=== PATIENT | female | born 1960 | race Caucasian/White ===

== ENCOUNTER → 2020-02-15 | Outpatient (CLI) | payer OTHER | END | disposition home or self-care (01) | LOC: PETCFH 07:45 | PROVIDERS: ATTEND Surgery | DX: R91.1 Solitary pulmonary nodule (principal) | CPT/HCPCS: 78815; A9552 ==

== ENCOUNTER → 2020-02-21 | Outpatient (CLI) | payer OTHER ==
[~2020-02-21] MED LIST: BISM262T9 PO; COLE1TAB2 PO; DIAZ2TAB PO; DILT180C59 PO; FAMO-79 PO; HYDROCHLOROTH12.5 MG PO; LISI-167 PO; MULT-717 PO; PANT20TA4 PO; WHEA1POW5 PO
[2020-02-21 11:04] LABS: BASOPHILS % (AUTO) 0 % (0-1); EOSINOPHILS % (AUTO) 2 % (1-7); LYMPHOCYTES % (AUTO) 25 % (22-44); MD NO; MEAN CORPUSCULAR HEMOGLOBIN 26.7 pg (27.0-34.8); MEAN CORPUSCULAR HGB CONC 32.7 g/dL (32.4-35.8); MEAN PLATELET VOLUME 8.3 fL (7.4-10.4); MONOCYTES % (AUTO) 9 % (2-9); NEUTROPHILS % (AUTO) 64 % (42-75); PLATELET COUNT 297 x10^3/uL (130-400); RED BLOOD COUNT 4.97 x10^6/uL (3.82-5.3); RED CELL DISTRIBUTION WIDTH 15.1 % (9.6-15.2)
[2020-02-21 11:10] LABS: ALBUMIN 4.3 g/dL (3.4-5.0); ANION GAP 10 mmol/L (5-15); CALCIUM 9.2 mg/dL (8.5-10.1); CHLORIDE 106 mmol/L (98-107)
[2020-02-21 11:16] LABS: ALANINE AMINOTRANSFERASE 50 U/L (12-78); ALKALINE PHOSPHATASE 133 U/L (45-117); BILIRUBIN,TOTAL 0.4 mg/dL (0.2-1.0); CREATININE 1.15 mg/dL (0.55-1.02); TOTAL PROTEIN 8.4 g/dL (6.4-8.2)
== END | disposition home or self-care (01) ==
LOC: STAR 09:37
PROVIDERS: ATTEND Surgery
DX: Z20.828 Contact with and (suspected) exposure to other viral communicable diseases (principal)
CPT/HCPCS: 36415; 80053; 85025; 87635; 93005

== ENCOUNTER 2020-02-26 06:09 | Inpatient (IN) | payer OTHER ==
[~2020-02-26] VITALS: Ht 165.1 cm; Wt 81.0 kg
[2020-02-26] MEDS ORDERED: CHLORHEXIDINE 15 ML UDC MM STA (06:29)
[2020-02-26] MEDS ORDERED: LACTATED RINGERS 1,000 ML IV SCH (06:30)
[2020-02-26] MEDS ORDERED: FENTANYL PF 250 MCG/5ML ONE (06:36)
[2020-02-26] MEDS ORDERED: PROPOFOL 50 ML ONE (06:36)
[2020-02-26] MEDS ORDERED: MIDAZOLAM 1 MG/ML, 2ML ONE (06:36)
[2020-02-26] MEDS ORDERED: ACETAMINOPHEN 325 MG TABLET PO PRN (07:00)
[2020-02-26] MEDS ORDERED: DIAZEPAM 5 MG/ML, 2ML IVPush PRN (07:00)
[2020-02-26] MEDS ORDERED: MEPERIDINE/PF 25MG/0.5ML IVPush PRN (07:00)
[2020-02-26] MEDS ORDERED: DIPHENHYDRAMINE 50 MG/ML, 1ML IVPush PRN (07:00)
[2020-02-26] MEDS ORDERED: PROMETHAZINE 25 MG/ML, 1ML IVPush PRN (07:00)
[2020-02-26] MEDS ORDERED: hydrALAzine 20 MG/ML, 1ML IV PRN ×2 (07:00→09:30)
[2020-02-26] MEDS ORDERED: LABETALOL 5MG/ML, 20ML IV PRN (07:00)
[2020-02-26] MEDS ORDERED: EPINEPHRINE 1 MG/ML, 1ML ONE (07:01)
[2020-02-26] MEDS ORDERED: BUPIVACAINE/PF 0.5% ONE (07:01)
[2020-02-26] MEDS ORDERED: ONDANSETRON 2MG/ML, 2ML ONE (07:38)
[2020-02-26] MEDS ORDERED: SUGAMMADEX 200 MG/2 ML IVPush ONE (07:38)
[2020-02-26] MEDS ORDERED: LIDOCAINE 4%, 4 ML SYR/CANN TP ONE ×2 (07:38)
[2020-02-26] MEDS ORDERED: PROPOFOL 10 MG/ML, 20ML ONE (07:38)
[2020-02-26] MEDS ORDERED: LIDOCAINE-MPF 2% ,5ML ONE (07:38)
[2020-02-26] MEDS ORDERED: CEFAZOLIN 1,000 MG ONE (07:38)
[2020-02-26] MEDS ORDERED: ROCURONIUM 10MG/ML,5ML ONE (07:38)
[2020-02-26] MEDS ORDERED: DEXAMETHASONE 4 MG/ML, 1ML ONE (07:38)
[2020-02-26] MEDS ORDERED: BUPIVACAINE/PF-EPI 0.5% 1:200K INFIL ONE (08:04)
[2020-02-26] MEDS ORDERED: FENTANYL PF 100 MCG/2ML ONE ×2 (09:01→09:52)
[2020-02-26] MEDS: FENTANYL PF 100 MCG/2ML IV PRN ×4 (09:03→10:13)
[2020-02-26] MEDS ORDERED: HYDROmorphone 1 MG/ML, 1ML INJ ONE (09:14)
[2020-02-26] MEDS ORDERED: DIAZEPAM 5 MG/ML, 2ML ONE (09:14)
[2020-02-26] MEDS ORDERED: KETOROLAC 30 MG/1 ML ONE (09:19)
[2020-02-26] MEDS: KETOROLAC 30 MG/1 ML IV PRN ×3 (09:24→23:35)
[2020-02-26] MEDS ORDERED: FAMOTIDINE 20 MG TABLET PO PRN (09:30)
[2020-02-26] MEDS ORDERED: DIAZEPAM 2 MG TABLET PO PRN (09:30)
[2020-02-26] MEDS ORDERED: DIPHENHYDRAMINE 50 MG/ML, 1ML IV PRN (09:30)
[2020-02-26] MEDS ORDERED: OXYcodone IR 5MG TABLET PO PRN (09:30)
[2020-02-26] MEDS: ACETAMINOPHEN 650 MG/20.3 ML UDC PO SCH ×2 (09:30→15:30)
[2020-02-26] MEDS ORDERED: MORPHINE SULFATE 4 MG/ML, 1ML IVPush PRN (09:30)
[2020-02-26] MEDS ORDERED: ONDANSETRON 2MG/ML, 2ML IVPush PRN (09:30)
[2020-02-26] MEDS ORDERED: ENALAPRILAT 1.25 MG/ML, 2ML IV PRN (09:30)
[2020-02-26] MEDS: HYDROmorphone 1 MG/ML, 1ML INJ IVPush PRN ×2 (09:37→09:48)
[2020-02-26] MEDS ORDERED: OXYcodone 5 MG/5 ML ORAL.SOL UDC ONE ×2 (09:49→15:06)
[2020-02-26] MEDS: OXYcodone 5 MG/5 ML ORAL.SOL UDC PO PRN ×2 (09:51→14:22)
[2020-02-26] MEDS ORDERED: MEPERIDINE/PF 25MG/ML,1ML ONE (11:29)
[2020-02-26] MEDS ORDERED: PROMETHAZINE 25 MG/ML, 1ML ONE (11:51)
[2020-02-26 12:53] LABS: BASOPHILS % (AUTO) 0 % (0-1); EOSINOPHILS % (AUTO) 0 % (1-7); LYMPHOCYTES % (AUTO) 4 % (22-44); MEAN CORPUSCULAR HEMOGLOBIN 26.3 pg (27.0-34.8); MEAN CORPUSCULAR HGB CONC 31.9 g/dL (32.4-35.8); MONOCYTES % (AUTO) 3 % (2-9); NEUTROPHILS % (AUTO) 93 % (42-75); PLATELET COUNT 269 x10^3/uL (130-400); RED BLOOD COUNT 4.65 x10^6/uL (3.82-5.3)
[2020-02-26 13:02] LABS: ALBUMIN 3.9 g/dL (3.4-5.0); ANION GAP 4 mmol/L (5-15); CALCIUM 8.8 mg/dL (8.5-10.1); CHLORIDE 105 mmol/L (98-107); CREATININE 1.32 mg/dL (0.55-1.02)
[2020-02-26 13:14] LABS: MD SCAN
[2020-02-26] MEDS: ONDANSETRON 2MG/ML, 2ML IVPush PRN (15:40)
[2020-02-26] MEDS: POTASSIUM CHLORIDE 20 MEQ in D5%-0.45% NACL 1,000 ML IV SCH (17:22)
[2020-02-26 19:50] VITALS: BP 118/74
[2020-02-26] MEDS: ACETAMINOPHEN 500 MG TABLET PO SCH (21:35)
[2020-02-26] MEDS: HEPARIN 5,000 UNITS/ML, 1ML SQ SCH (21:35)
[2020-02-26 23:57] VITALS: BP 109/67
[2020-02-27 03:32] VITALS: BP 112/66
[2020-02-27] MEDS: ACETAMINOPHEN 500 MG TABLET PO SCH ×4 (03:32→22:01)
[2020-02-27] MEDS: POTASSIUM CHLORIDE 20 MEQ in D5%-0.45% NACL 1,000 ML IV SCH ×2 (03:32→19:56)
[2020-02-27] MEDS: KETOROLAC 30 MG/1 ML IV PRN (05:33)
[2020-02-27] MEDS: HEPARIN 5,000 UNITS/ML, 1ML SQ SCH ×3 (05:33→22:03)
[2020-02-27 06:59] VITALS: BP 114/66
[2020-02-27] MEDS: PANTOPRAZOLE 20MG TABLET PO SCH (07:52)
[2020-02-27] MEDS: ONDANSETRON 2MG/ML, 2ML IVPush PRN (10:05)
[2020-02-27] MEDS: IBUPROFEN 800 MG TABLET PO SCH ×2 (13:16→20:25)
[2020-02-27 14:16] VITALS: BP 101/50
[2020-02-27 19:03] VITALS: BP 103/62
[2020-02-27] MEDS ORDERED: DIAZEPAM ELIXIR 1 MG/ML PO PRN (22:30)
[2020-02-28 01:53] VITALS: BP 122/69
[2020-02-28] MEDS: ACETAMINOPHEN 500 MG TABLET PO SCH ×2 (03:42→10:13)
[2020-02-28] MEDS: HEPARIN 5,000 UNITS/ML, 1ML SQ SCH ×2 (05:28→13:00)
[2020-02-28] MEDS: PANTOPRAZOLE 20MG TABLET PO SCH (08:12)
[2020-02-28] MEDS: IBUPROFEN 800 MG TABLET PO SCH ×2 (08:12→12:57)
[2020-02-28 08:40] VITALS: BP 123/69
[2020-02-28] MEDS: POTASSIUM CHLORIDE 20 MEQ in D5%-0.45% NACL 1,000 ML IV SCH (09:24)
[2020-02-28] MEDS ORDERED: IBUP-1223 PO (12:24)
[2020-02-28 12:26] VITALS: BP 122/73
[2020-02-28] MEDS ORDERED: OXYC-302 PO (14:29)
== END 2020-02-28 14:40 | disposition home or self-care (01) | DRG 165 ==
LOC: ORIP 06:09 → EDSTATUS 07:30 → 4NE 15:43 → DCLOUNGE 02-28 14:26
PROVIDERS: ADMIT Surgery; ATTEND Surgery
PROC: 07T74ZZ Resection of Thorax Lymphatic, Percutaneous Endoscopic Approach (ICD-10-PCS; 2020-02-26)
PROC: 0BBG4ZZ Excision of Left Upper Lung Lobe, Percutaneous Endoscopic Approach (ICD-10-PCS; principal; 2020-02-26 07:30)
DX: C34.12 Malignant neoplasm of upper lobe, left bronchus or lung (principal)
CPT/HCPCS: 36415; J3490; S0020; 71045; 80048; 82040; 85025; 86850; 86900; 88305; 88307; C1729; G0378; J0171; J0690; J1100; J1170; J1644; J1885; J2175; J2250; J2405; J2550; J2704; J3010; J3360; J3480; C1760; J7120

== ENCOUNTER → 2020-08-06 | Outpatient (CLI) | payer OTHER ==
[~2020-08-06] MED LIST changes: +IBUP-1223 PO; +OMNIPAQUE 350 MG/ML, 75ML BOTTLE ONE; +OXYC1TAB14 PO
== END | disposition home or self-care (01) ==
LOC: CFH 11:50 → EDSTATUS 12:00
PROVIDERS: ATTEND Surgery
DX: Z09 Encounter for follow-up examination after completed treatment for conditions other than malignant neoplasm (principal); J98.4 Other disorders of lung; K76.0 Fatty (change of) liver, not elsewhere classified; R59.0 Localized enlarged lymph nodes; J47.9 Bronchiectasis, uncomplicated; Z85.118 Personal history of other malignant neoplasm of bronchus and lung; Z90.49 Acquired absence of other specified parts of digestive tract
CPT/HCPCS: 71260; 82565; Q9967

== ENCOUNTER → 2020-09-04 | Outpatient (CLI) | payer OTHER ==
[~2020-09-04] MED LIST changes: -OMNIPAQUE 350 MG/ML, 75ML BOTTLE ONE
== END | disposition home or self-care (01) ==
LOC: PETCFH 08:32
PROVIDERS: ATTEND Surgery
DX: R59.0 Localized enlarged lymph nodes (principal); Z85.118 Personal history of other malignant neoplasm of bronchus and lung
CPT/HCPCS: 78815; A9552

== ENCOUNTER 2020-09-11 10:16 | Day surgery (SDC) | payer OTHER ==
[2020-09-10 14:09] LABS: ALANINE AMINOTRANSFERASE 38 U/L (12-78); ALBUMIN 3.8 g/dL (3.4-5.0); ANION GAP 6 mmol/L (5-15); CHLORIDE 106 mmol/L (98-107); CREATININE 0.99 mg/dL (0.55-1.02)
[2020-09-10 14:12] LABS: ALKALINE PHOSPHATASE 132 U/L (45-117); BILIRUBIN,TOTAL 0.2 mg/dL (0.2-1.0); TOTAL PROTEIN 7.7 g/dL (6.4-8.2)
[~2020-09-11] VITALS: Ht 165.1 cm; Wt 80.8 kg
[~2020-09-11 10:16] MED LIST changes: +ACETAMINOPHEN 325 MG TABLET PO PRN; +CHOL10003 PO; +EPHEDRINE 50 MG/ML, 1ML IVPush PRN; +FENTANYL PF 100 MCG/2ML IV PRN; +LABETALOL 5MG/ML, 20ML IV PRN; +ONDANSETRON 2MG/ML, 2ML IVPush PRN; +PROMETHAZINE 25 MG/ML, 1ML IVPush PRN; +hydrALAzine 20 MG/ML, 1ML IV PRN
[2020-09-11] MEDS ORDERED: CHLORHEXIDINE 15 ML UDC ONE (10:52)
[2020-09-11] MEDS ORDERED: PROPOFOL 50 ML ONE ×2 (10:53→13:04)
[2020-09-11] MEDS ORDERED: FENTANYL PF 100 MCG/2ML ONE (10:53)
[2020-09-11] MEDS ORDERED: MIDAZOLAM 1 MG/ML, 2ML ONE (10:53)
[2020-09-11] MEDS ORDERED: CHLORHEXIDINE 15 ML UDC PO ONE (11:00)
[2020-09-11] MEDS ORDERED: LACTATED RINGERS 1,000 ML IV SCH (11:00)
[2020-09-11 11:12] VITALS: BP 118/74
[2020-09-11] MEDS ORDERED: ROCURONIUM 10MG/ML,5ML ONE (11:49)
[2020-09-11] MEDS ORDERED: CEFAZOLIN 1,000 MG ONE (11:49)
[2020-09-11] MEDS ORDERED: PROPOFOL 10 MG/ML, 20ML ONE (11:49)
[2020-09-11] MEDS ORDERED: ONDANSETRON 2MG/ML, 2ML ONE (11:49)
[2020-09-11] MEDS ORDERED: DEXAMETHASONE 4 MG/ML, 5ML ONE (11:49)
[2020-09-11] MEDS ORDERED: SUCCINYLCHOLINE 20 MG/ML, 10ML ONE (11:49)
[2020-09-11] MEDS ORDERED: LIDOCAINE-MPF 2% ,5ML ONE ×2 (11:49)
[2020-09-11] MEDS ORDERED: DIAZEPAM 5 MG/ML, 2ML IVPush PRN (12:30)
[2020-09-11] MEDS ORDERED: SUGAMMADEX 200 MG/2 ML IVPush ONE (12:42)
[2020-09-11] MEDS ORDERED: ACETAMINOPHEN 650 MG/20.3 ML UDC ONE (13:32)
[2020-09-11] MEDS ORDERED: KETOROLAC 30 MG/1 ML ONE (14:05)
[2020-09-11] MEDS ORDERED: KETOROLAC 30 MG/1 ML IVPush PRN (14:30)
== END 2020-09-11 15:30 | disposition home or self-care (01) ==
LOC: OUT 10:16
PROVIDERS: ATTEND Internal Medicine
DX: C34.90 Malignant neoplasm of unspecified part of unspecified bronchus or lung (principal); I10 Essential (primary) hypertension; Z79.899 Other long term (current) drug therapy; Z88.5 Allergy status to narcotic agent; Z88.8 Allergy status to other drugs, medicaments and biological substances; Z72.89 Other problems related to lifestyle; Z87.891 Personal history of nicotine dependence; Z98.890 Other specified postprocedural states; Z20.822 Contact with and (suspected) exposure to COVID-19
CPT/HCPCS: 31652; 36415; 80053; 88172; 88173; 88177; 88305; 93005; J0330; J0690; J1100; J1885; J2250; J2405; J2704; J3010; J7120; U0003; U0005; 31622